=== PATIENT | male | born 1965 | race Caucasian/White ===

== ENCOUNTER 2021-04-13 18:50 | Emergency (ER) | payer SELFPAY ==
[~2021-04-13] VITALS: Ht 177.8 cm; Wt 80.0 kg
[2021-04-13] MEDS ORDERED: IBUP-2028 PO (20:21)
[2021-04-13 22:26] VITALS: BP 141/79
== END 2021-04-13 22:53 | disposition home or self-care (01) ==
LOC: ER 18:50
DX: S02.2XXA Fracture of nasal bones, initial encounter for closed fracture (principal); Y04.0XXA Assault by unarmed brawl or fight, initial encounter; Y93.89 Activity, other specified; Y92.89 Other specified places as the place of occurrence of the external cause; Y99.8 Other external cause status
CPT/HCPCS: 70486; 99284